=== PATIENT | male | born 1990 | race Caucasian/White ===

== ENCOUNTER 2019-03-11 15:00 | Emergency (ER) | payer MEDICAID, SELFPAY ==
[2019-03-11 15:01] VITALS: BP 114/68; PULSE 90; RESP 16; TEMP 36.2; O2SAT 98; BMI 28.1
[2019-03-11 16:06] LABS: Absolute Lymphocyte Count 2.26 X10^3/uL (0.83-4.51); Absolute Neutrophil Count 4.5 X10^3/uL (2.0-7.7); Basophil# 0.06 X10^3/uL; Basophil% 0.8 % (0-1); Eosinophil# 0.12 X10^3/uL; Eosinophils% 1.5 % (0-5); Hematocrit 45.2 % (40-54); Hemoglobin 15.4 g/dL (13.0-16.5); Lymphocyte # 2.26 X10^3/ul (4.0); Lymphocyte % 28.6 % (19-41); Mean Corp Hgb Conc 34.1 g/dL (32-36); Mean Corpuscular Hgb 30.7 pg (27.0-32.0); Mean Corpuscular Volume 90.2 fL (80-94); Mean Platelet Vol. 9.9 fl (6.2-12.0); Monocyte# 0.93 X10^3/uL; Monocyte% 11.8 % (0-10); NRBC Flagged by Analyzer 0 % (0-5); Neutrophil # 4.51 X10^3/uL (2.7-7.7); Platelet Count 283 K/mm3 (150-450); RBC Distribution Width CV 11.4 % (11.6-14.6); RBC Distribution Width SD 37.8 fl (35.1-43.9); Red Blood Count 5.01 M/mm3 (4.6-6.2); White Blood Count 7.9 K/mm3 (4.4-11.0)
[2019-03-11 16:21] LABS: ALB/GLOB Ratio 1.2 RATIO (0.9-2.4); AST(SGOT) 14 U/L (15-37); Alanine Aminotransfer ALT/SGPT 22 U/L (16-61); Albumin, Serum 4.3 g/dL (3.2-5.0); Alkaline Phosphatase 61 U/L (45-117); Anion Gap 4 (5-15); BUN 12 mg/dL (7-18); BUN/Creat Ratio 11.8 RATIO (10-20); Calcium,Total 9.1 mg/dL (8.5-10.1); Chloride 106 mmol/L (98-107); Creatinine, Serum 1.02 mg/dL (0.70-1.30); EST Glomerular Filtration Rate 92 mL/min (>60); Est Glom Filt Rate - Afr Amer 111 mL/min (>60); Estimated Creatinine Clearance 103.38 ml/min; Globulin 3.6 g/dL (2.2-4.2); Glucose 91 mg/dL (74-106); Potassium 3.9 mmol/L (3.5-5.1); Protein, Total 7.9 g/dL (6.4-8.2); Sodium Level 141 mmol/L (136-145)
[2019-03-11 16:25] LABS: International Normalized Ratio 1.2; Prothrombin Time (Protime)PT. 14.5 SECONDS (11.7-14.9)
[2019-03-11 16:26] LABS: Partial Thromboplast Time 33.8 Seconds (24.1-36.2)
--- NOTE | 2019-03-11 16:55 | ED.DCSUM_ITS ---
- ER Visit Summary Date of Service: 03/11/19 Chief Complaint: Blood in stool History of Present Illness: The patient is a 29 M that has had some rectal pain recently. He had bright red blood on a bowel movement and in the toilet bowl after a bowel movement today. This was the first time this happened. He has had rectal pain for about 2 days. No prior history of hemorrhoids or other rectal problems. No other significant medical history. He does not take blood thinners. Physical Examination: Afebrile and vital signs unremarkable. Abdomen soft and nontender. Patient has a right-sided external hemorrhoid that is nonthrombosed. There is a small abrasion. Otherwise his exam is unremarkable. Test Results: Blood work was all unremarkable. Coags normal. Hemoccult testing was positive. I believe this is from the hemorrhoid. He had no stool in the r ectal vault. His exam was chaperoned by Vicenta SAVAGE. Emergency Department Course and Treatment: Patient has an external hemorrhoid. His blood work, vitals, and exam are otherwise unremarkable. We will treat the hemorrhoid. If he has worsening bleeding or any other new symptoms, he should return right away. Will refer to surgery for follow-up. Treatment Plan: Stool softeners. Topical treatments. Disposition: Discharge Impression: 1. External hemorrhoid This note was generated with [employer] dictation software. It may contain incorrect words, spelling, and punctuation that were not noted in review of the chart prior to signing ED Disposition - Plan for ED Patient: Referrals: Care Physician,No Primary [Primary Care Provider] -
--- NOTE | 2019-03-11 16:57 | ED.DEP ---
ED Disposition - Plan for ED Patient: Instructions: Treating Hemorrhoids: Self-Care Prescriptions: Docusate Sodium [Colace] 100 mg PO DAILY #20 cap Prescription Printed Ashia Wright [Tucks] 1 ea TP Q4H #30 med..pad Prescription Printed Referrals: Hernandez Prasad MD [STAFF PHYSICIAN] -
== END 2019-03-11 17:11 | disposition home or self-care (01) ==
PROVIDERS: Emergency Provider Emergency Medicine
DX: K64.4 Residual hemorrhoidal skin tags (principal)
CPT/HCPCS: 80053; 82274; 85025; 85610; 85730; 99283; J7030

== ENCOUNTER 2020-07-28 14:54 | Emergency (ER) | payer MEDICAID, SELFPAY ==
[2020-07-28 14:56] VITALS: BP 122/84; PULSE 80; RESP 18; TEMP 35.9; O2SAT 98; BMI 32.3
--- NOTE | 2020-07-28 15:06 | NURSING ---
NO OLD EKGS
--- NOTE | 2020-07-28 15:11 | EKG12_ITS ---
Test Reason : CP Blood Pressure : / mmHG Vent. Rate : 072 BPM Atrial Rate : 072 BPM P-R Int : 126 ms QRS Dur : 084 ms QT Int : 376 ms P-R-T Axes : 010 065 034 degrees QTc Int : 411 ms Sinus rhythm with marked sinus arrhythmia Otherwise normal ECG Confirmed by SHAHEEN PULIDO, LISANDRA ([id number]), slot editor EUGENE ROE ([id number]) on 07/31/2020 11:26:29 AM Referred By: EFREN Confirmed By:LISANDRA JAMISON MD
--- NOTE | 2020-07-28 15:11 | ED.VIS.GEN ---
History of Present Illness Chief Complaint: Chest Pain Informant: Patient Narrative: 30-year-old male presenting for the evaluation of chest pressure. Tells me he has had 3 episodes in the past couple of weeks but last 10 to 20 minutes. No particular activity seems to incite it. He describes it as a heaviness midsternal. Denies any other symptoms. The last episode was last evening. He is a non-smoker. No known early familial heart disease. Patient reports that his family feels that he is more fatigued than normal. Past Medical History - Allergies and Home Meds Allergies/Adverse Reactions: Allergies No Known Allergies Allergy (Verified 07/28/20 14:58) Primary Care Physician: Care Physician,No Primary [Primary Care Provider] - Past Medical History: None Surgical History: noncontributory Lives: With Family Smoking Status: Never smoker Drugs: None Review of Systems General: Denies: Chills, Fever, Sweats Eyes: Denies: Visual changes - bilaterally, Diplopia ENT: Denies: Rhinorrhea, Sore throat Cardiovascular: Reports: Chest pain. Denies: Palpitations Respiratory: Denies: Dyspnea, Cough, Dyspnea on exertion Gastrointestinal: Denies: Abdominal pain, Nausea, Vomiting, Diarrhea, Melena, Hematochezia Genitourinary: Denies: Dysuria, Hematuria, Frequency Musculoskeletal: Denies: Back pain, Extremity Pain Skin: Denies: Rash, Wounds Neurological: Denies: Headache, Weakness, Numbness Physical Exam Vital Signs/Narrative: Vital Signs Temp Pulse Resp BP Pulse Ox 07/28/20 14:56 96.7 F L 80 18 122/84 H 98 Inital Vital Signs reviewed: Yes General: Well nourished, Well developed, No Acute Distress Head: Normocephalic, Atraumatic Eyes: Perrl, EOMI ENT: Moist mucous membranes, No rhinorrhea Neck: Supple, Nontender Cardiovascular: Regular rate, Regular rhythm, No murmurs Respiratory: No distress, CTA bilaterally, Chest nontender Abdomen: Soft, Nontender, Nondistended, Normal bowel sounds Back: Nontender, Normal Inspection Extremities: Nontender, No edema Skin: Normal color, No rash Neurological: Alert, Oriented x3, Cranial nerves II-XII grossly intact, Normal Strength, Normal Sensation Psychological: Normal affect, Normal Mood Diagnostic/Tx/Re-eval Clinical Impression(s) from Imaging Studies Chest X-Ray 07/28/20 15:13 IMPRESSION: Nonacute portable x-ray examination of the chest. Electronically Signed: Evangelist Aguilar MD (Brooks) at 15:32 EST , Service support , Laboratory Last Values WBC 6.9 K/mm3 (4.4-11.0) 07/28/20 15: RBC 4.57 M/mm3 (4.6-6.2) L 07/28/20 15:26 Hgb 13.9 g/dL (13.0-16.5) 07/28/20 15: Hct 40.8 % (40-54) 07/28/20 15: MCV 89.3 fL (80-94) 07/28/20 15: MCH 30.4 pg (27.0-32.0) 07/28/20 15: MCHC 34.1 g/dL (32-36) 07/28/20 15: RDW Std Deviation 36.6 fl (35.1-43.9) 07/28/20 15: RDW Coeff of Abhijeet 11.4 % (11.6-14.6) L 07/28/20 15: Plt Count 264 K/mm3 (150-450) 07/28/20 15: MPV 10.0 fl (6.2-12.0) 07/28/20 15: Immature Gran % (Auto) 0.300 % (0.0-0.9) 07/28/20 15: Neut % (Auto) 51.4 % (47-70) 07/28/20 15: Lymph % (Auto) 34.0 % (19-41) 07/28/20 15: [place] % (Auto) 12.1 % (0-10) H 07/28/20 15: Eos % (Auto) 1.3 % (0-5) 07/28/20 15: Baso % (Auto) 0.9 % (0-1) 07/28/20 15:26 Absolute Neuts (auto) 3.5 X10^3/uL (2.0-7.7) 07/28/20 15:26 Absolute Lymphs (auto) 2.33 X10^3/uL (0.83-4.51) 07/28/20 15:26 Nucleated RBC % 0 % (0-5) 07/28/20 15:26 Sodium 137 mmol/L (136-145) 07/28/20 15:26 Potassium 3.6 mmol/L (3.5-5.1) 07/28/20 15:26 Chloride 104 mmol/L (98-107) 07/28/20 15:26 Carbon Dioxide 27.0 mmol/L (21.0-32.0) 07/28/20 15:26 Anion Gap 6 (5-15) 07/28/20 15:26 BUN 11 mg/dL (7-18) 07/28/20 15:26 Creatinine 0.90 mg/dL (0.70-1.30) 07/28/20 15:26 Estim Creat Clear Calc 108.30 ml/min 07/28/20 15:26 Est GFR (MDRD) Af Amer 128 mL/min (>60) 07/28/20 15:26 Est GFR (MDRD) Non-Af 106 mL/min (>60) 07/28/20 15:26 BUN/Creatinine Ratio 12.3 RATIO (10-20) 07/28/20 15:26 Glucose 97 mg/dL (74-106) 07/28/20 15:26 Calcium 8.6 mg/dL (8.5-10.1) 07/28/20 15:26 Troponin I < 0.015 ng/mL (<0.045) 07/28/20 15:26 - EKG Initial EKG Interpretation: Sinus Rhythm - EKG is a sinus rhythm with sinus arrhythmia at a rate of 72 without ACS features or ectopy - Medical Decision Making Patient is PERC negative. EKG is a sinus rhythm. My interpretation of the single view chest x-ray is no acute process. Troponin is negative. Patient is asymptomatic at this time. Possible the patient is experiencing esophageal spasms or bronchospasm. I have asked that if he has another episode to take some Maalox and see if that makes a difference. I have asked that he establish primary care to follow up from todays visit ED Disposition - Plan for ED Patient: Disposition: Home or Assisted Living Diagnosis: Chest pain Instructions: ED Chest Pain, Uncertain Cause Referrals: Rosita Rouse MD [STAFF PHYSICIAN] - (call to arrange primary care follow up)
--- NOTE | 2020-07-28 15:13 | RAD_ITS ---
STUDY: X-RAY CHEST REASON FOR EXAM: Male, 30 years old. INTERMITTENT CHEST TIGHTNESS STARTING LAST NIGHT TECHNIQUE: AP COMPARISON: None. FINDINGS: The lungs are clear and expanded. There is no demonstrated pleural abnormality. Normal size heart. Normal mediastinum and bao. Normal visualized pulmonary arteries. Normal visualized aortic arch and descending thoracic aorta. Normal visualized thoracic spine. Normal visualized ribs, clavicles, and shoulders. There is no demonstrated abnormality of the visualized soft tissue structures of the upper abdomen. RAD/Chest 1 View (Portable) IMPRESSION: Nonacute portable x-ray examination of the chest. Electronically Signed: Evangelist Aguilar MD (Brooks) at 15:32 EST , Service support ,
[2020-07-28 15:44] LABS: Absolute Lymphocyte Count 2.33 X10^3/uL (0.83-4.51); Absolute Neutrophil Count 3.5 X10^3/uL (2.0-7.7); Basophil# 0.06 X10^3/uL; Basophil% 0.9 % (0-1); Eosinophil# 0.09 X10^3/uL; Eosinophils% 1.3 % (0-5); Hematocrit 40.8 % (40-54); Hemoglobin 13.9 g/dL (13.0-16.5); Lymphocyte # 2.33 X10^3/ul (4.0); Mean Corp Hgb Conc 34.1 g/dL (32-36); Mean Corpuscular Hgb 30.4 pg (27.0-32.0); Mean Corpuscular Volume 89.3 fL (80-94); Monocyte# 0.83 X10^3/uL; Monocyte% 12.1 % (0-10); NRBC Flagged by Analyzer 0 % (0-5); Neutrophil # 3.53 X10^3/uL (2.7-7.7); Neutrophil % 51.4 % (47-70); Platelet Count 264 K/mm3 (150-450); RBC Distribution Width CV 11.4 % (11.6-14.6); RBC Distribution Width SD 36.6 fl (35.1-43.9); Red Blood Count 4.57 M/mm3 (4.6-6.2); White Blood Count 6.9 K/mm3 (4.4-11.0)
[2020-07-28 16:20] LABS: Anion Gap 6 (5-15); BUN 11 mg/dL (7-18); BUN/Creat Ratio 12.3 RATIO (10-20); Calcium,Total 8.6 mg/dL (8.5-10.1); Chloride 104 mmol/L (98-107); EST Glomerular Filtration Rate 106 mL/min (>60); Est Glom Filt Rate - Afr Amer 128 mL/min (>60); Glucose 97 mg/dL (74-106); Potassium 3.6 mmol/L (3.5-5.1); Sodium Level 137 mmol/L (136-145)
[2020-07-28 16:54] VITALS: PULSE 67; RESP 21; O2SAT 98
== END 2020-07-28 16:55 | disposition home or self-care (01) ==
PROVIDERS: Emergency Provider Emergency Medicine
DX: R07.9 Chest pain, unspecified (principal)
CPT/HCPCS: 71045; 80048; 84484; 85025; 93005; 99284; A4216

== ENCOUNTER 2020-10-01 02:52 | Emergency (ER) | payer MEDICAID, SELFPAY ==
--- NOTE | 2020-10-01 02:52 | EKG12_ITS ---
Test Reason : CP Blood Pressure : / mmHG Vent. Rate : 073 BPM Atrial Rate : 073 BPM P-R Int : 130 ms QRS Dur : 084 ms QT Int : 398 ms P-R-T Axes : -09 058 027 degrees QTc Int : 438 ms Normal sinus rhythm Normal ECG Confirmed by ESME PULIDO, DOMINGUEZ ([id number]), freelance programmer/app developer EUGENE ROE ([id number]) on 10/03/2020 8:56:59 AM Referred By: JACOB Confirmed By:DMOINGUEZ VICTORIA MD
[2020-10-01 02:53] VITALS: BP 129/75; PULSE 74; RESP 16; TEMP 36.4; O2SAT 98; BMI 34.9
--- NOTE | 2020-10-01 03:14 | ED.DCSUM_ITS ---
- ER Visit Summary Date of Service: 10/01/20 Chief Complaint: Lower sternal chest pain History of Present Illness: The patient is a 30 M no sniffing past medical history. Prior hernia repair is a small child. Patient states tonight lay down to go to bed around midnight but is lying flat in bed he had lower sternal chest discomfort. He denies any nausea or vomiting. He denies any shortness of breath. Describes it as a dull ache. No radiation to his neck, jaw, arm or back. Not associated with exertion. No recent exertional symptoms. No history of DVT or PE or any family history of sudden cardiac in anyone below 40 and no history of clots. He denies any leg pain or swelling. No recent travel, surgery or immobilization. No hemoptysis. He is not particularly short of breath. Physical Examination: Young male no acute distress vital signs stable afebrile. Pulse ox 90% on room air no signs of hypoxia. HEENT exam unremarked. Neck nontender no JVD no lymphadenopathy. Lungs clear to auscultation bilaterally. Heart regular rate and rhythm rate in the 70s. No murmur. Chest wall nontender. No ecchymosis or bruising. No subcu air or crepitance. No reproducible pain. Abdomen soft nontender normal bowel sounds no peritoneal signs. Patient moving all 4 extremities. Neurovascular intact. Equal symmetrical perforator loader strength. Equal symmetrical radial pulses. Calves nontender without edema or cords. Back nontender. Neurologically is awake alert with no focal motor deficit. Test Results: EKG shows a normal sinus rhythm rate of 73 no acute signs of KS or ischemia. Unchanged from prior EKG from July 282020. Repeat exam patient is doing well at 4:05 AM. He is symptom-free after the GI cocktail and the Pepcid. He and I discussed test results and diagnosis. Emergency Department Course and Treatment: Patient has nonreproducible nonexertional noncardiac sounding chest pain. He is in normal exam. EKG is normal and unchanged. He had a prior work-up about 2 months ago which was negative. I have reviewed all those laboratory and test results. He had negative chest x-ray at that time. He will be treated with GI cocktail and Pepcid and reassess. Clinically this appears to be like a reflux. Treatment Plan: Prilosec for reflux. Outpatient follow-up. Return if worse. Disposition: Discharge Impression: Acute chest pain secondary to reflux This note was generated with [employer] dictation software. It may contain incorrect words, spelling, and punctuation that were not noted in review of the chart prior to signing ED Disposition - Plan for ED Patient: Referrals: Care Physician,No Primary [Primary Care Provider] -
[2020-10-01] MEDS: Famotidine 20 MG Tablet 40 MG PO (03:17)
[2020-10-01] MEDS: Mag Hydrox/Al Hydrox/Simeth 30 ML UDC PO (03:17)
--- NOTE | 2020-10-01 04:06 | ED.DEP ---
ED Disposition - Plan for ED Patient: Disposition: Home or Assisted Living Instructions: ED GERD (Adult) Prescriptions: Omeprazole [Prilosec] 20 mg PO DAILY #30 capsule Prescription Printed Referrals: Barney Gonsalez MD [STAFF PHYSICIAN] - 1 Week if not improving Additional Instructions: Avoid eating food within 3 hours of going to bed. Elevate the head of your bed if possible. You can either get the Prilosec I prescribed [id number] or through the pharmacy. This should help reduce the acid in your stomach and decrease the indigestion. You could take it either once daily or twice daily. Avoid alcohol at the current time it may irritate your stomach more also avoid Motrin until your stomach feeling better. Follow-up with a local physician if not improving. Return emergency department if you are feeling a lot worse.
[2020-10-01 04:22] VITALS: BP 121/82; PULSE 71; RESP 17; O2SAT 98
[2020-10-01 04:26] VITALS: BP 121/82; PULSE 101; RESP 20; O2SAT 97
== END 2020-10-01 04:27 | disposition home or self-care (01) ==
PROVIDERS: Emergency Provider Emergency Medicine
DX: K21.9 Gastro-esophageal reflux disease without esophagitis (principal)
CPT/HCPCS: 93005; 99283

== ENCOUNTER 2024-01-26 20:11 | Emergency (ER) | payer MEDICAID, SELFPAY ==
[2024-01-26 20:12] VITALS: BP 123/69; PULSE 86; RESP 16; TEMP 36.6; O2SAT 99; BMI 40.1
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
[2024-01-26] MEDS: Fluorescein 1 MG STRIP 2 STRIP OPHTHALMIC (21:04)
[2024-01-26] MEDS: Tetracaine 0.5% Ophthalmic Bottle 1 DRP EACH EYE (21:06)
[2024-01-26 22:04] VITALS: BP 118/80; PULSE 71; RESP 16; TEMP 36.3; O2SAT 99
== END 2024-01-26 22:05 | disposition home or self-care (01) ==
PROVIDERS: Emergency Provider Emergency Medicine; Visit Provider Emergency Medicine
DX: Z77.098 Contact with and (suspected) exposure to other hazardous, chiefly nonmedicinal, chemicals (principal)
CPT/HCPCS: 99284

== ENCOUNTER 2024-07-26 14:52 | Emergency (ER) | payer MEDICAID, SELFPAY ==
[2024-07-26] VITALS (7 sets, daily range): BP systolic 120–136; BP diastolic 60–74; PULSE 88–123; RESP 15–22; TEMP 37.3–38.3; O2SAT 94–99; BMI 34.4
--- NOTE | 2024-07-26 14:56 | RAD_ITS ---
PROCEDURE: CHEST 1 VIEW (PORTABLE) REASON FOR EXAM: Fever, cough TECHNIQUE: Frontal view of the chest COMPARISON: 07/28/20 FINDINGS: The heart size is normal. The mediastinal contour is unremarkable. Left lower lung zone opacity likely representing atelectasis. The bones are unremarkable. RAD/Chest 1 View (Portable) IMPRESSION: Left lower lung atelectasis. No acute infiltrate. Reading Location: [facility]
--- NOTE | 2024-07-26 16:16 | EDS_ITS ---
HPI History of Present Illness Chief Complaint: Shortness of Breath Informant: patient Onset/Context/Timing Onset: Weeks (2) Context: sudden Timing: Continuous Quality: Positive for Dyspnea on exertion Worsened by: Exertion Relieved by: Rest Associated Symptoms cough, rhinorrhea, fever, sore throat and yellow sputum; Negative for post nasal drip, ear pain, sweats, clear sputum, white sputum or green sputum Chest Pain: Positive for Aching Narrative Narrative: Patient presents with shortness of breath and cough that has been getting worse over the past 2 weeks. Patient states he went to urgent care and was given a prescription for cough medicine. Patient states he has been taking this with no relief. Patient states he is coughing up some yellow sputum occasionally. Patient admits to a fever of 102.4 at home. Patient admits to a sore throat and rhinorrhea. Patient also admits to some pain across his chest. Patient describes it as aching. [facility] Medical History (Updated 07/26/24 @ 18:[address] Shan Alvarado DO) Inguinal hernia Home Medications ?Medication ?Instructions ?Recorded ?Last Taken ?Type NK 07/26/24 Unknown History Allergy/AdvReac Type Severity Reaction Status Date / Time No Known Allergies Allergy Verified 07/26/24 14:53 Surgical History (Updated 07/26/24 @ 16:[address] Shan Alvarado DO) History of herniorrhaphy Social History Smoking Status: Never smoker ROS ROS ED Constitutional Constitutional ED: Reports fever(s); Denies chills Eyes Eyes: Denies blurry vision or change in vision ENT ENT ED: Reports rhinorrhea and sore throat Cardiovascular Cardiovascular: Reports chest pain; Denies palpitations Respiratory/Chest Respiratory/Chest: Reports cough and dyspnea Gastrointestinal Gastrointestinal: Reports nausea and vomiting Genitourinary Genitourinary ED: Denies dysuria or hematuria Musculoskeletal Musculoskeletal: Reports back pain and neck pain Integumentary Denies abscess or rash Neurologic Neurologic: Reports headache(s); Denies weakness Allergic/Immunologic Allergic/Immunologic ED: Denies mouth swelling or urticaria EXAM Physical Exam Const Vital Signs: 07/26/24 14:53 07/26/24 14:56 07/26/24 16:13 Temperature 100.9 F H 100.9 F H Temperature Source Oral Oral Pulse Rate 123 H 123 H Respiratory Rate 22 H 22 H Respiratory Effort Respiratory Depth Respiratory Pattern Blood Pressure 120/74 120/74 Blood Pressure Mean 89 89 Pulse Ox 94 94 Oxygen Delivery Method Room Air Room Air Room Air 07/26/24 16:13 07/26/24 16:13 07/26/24 16:52 Temperature Temperature Source Pulse Rate 105 H Respiratory Rate 19 H 20 H Respiratory Effort Short of Breath Respiratory Depth Normal Respiratory Pattern Tachypnea Blood Pressure 133/69 H Blood Pressure Mean 90 Pulse Ox 97 97 Oxygen Delivery Method Room Air Room Air Room Air 07/26/24 16:56 07/26/24 17:00 Temperature 100.9 F H 100.9 F H Temperature Source Oral Oral Pulse Rate 105 H 98 Respiratory Rate 20 H 17 Respiratory Effort Respiratory Depth Respiratory Pattern Blood Pressure 133/69 H 131/60 H Blood Pressure Mean 90 83 Pulse Ox 97 99 Oxygen Delivery Method Room Air Room Air Positive well nourished and well developed General Appearance ED: well developed and NAD HEENT Reports moist mucous membranes Neck supple and no JVD Resp normal respiratory effort and clear to auscultation bilaterally Cardio regular rhythm Rate: tachycardic GI non-tender and non-distended Palpation: soft Extremity normal to inspection Neuro oriented x3, CN's II-XII intact bilaterally and no sensory deficits noted Wells Coma Scale: document GCS findings Spontaneous Obeys Commands Oriented 15 Sensorium / Orientation: alert Speech: speech normal Motor Exam: strength 5/5 throughout Psych mental status grossly normal MDM MDM MDM Narrative Medical decision making narrative: Differential diagnosis includes viral illness, pneumonia, bronchitis, dehydration, and electrolyte abnormality. CBC will be obtained to assess for leukocytosis and anemia. Basic metabolic profile will be obtained to assess for electrolyte abnormality and renal functions. Chest x-ray will be obtained to assess for pneumonia and bronchitis. Lab Data Attestation: I reviewed the patient's lab results. Lab results narrative: CBC was reviewed. There is a mild leukocytosis of 14.2. The remainder is within normal limits. Basic metabolic profile was reviewed and was within normal limits. COVID-19 PCR was reviewed and was negative. Influenza PCR was reviewed and was negative for influenza A and influenza B. RSV PCR was reviewed and was negative. Rapid strep was reviewed and was negative. Labs: Laboratory Results - last 24 hr 07/26/24 16:08 WBC 14.2 H RBC 4.58 L Hgb 13.8 Hct 39.5 L MCV 86.2 MCH 30.1 MCHC 34.9 RDW Std Deviation 35.8 RDW Coeff of Abhijeet 11.2 L Plt Count 302 MPV 9.4 Immature Gran % (Auto) 0.300 Neut % (Auto) 75.9 H Lymph % (Auto) 11.8 L [place] % (Auto) 11.3 H Eos % (Auto) 0.3 Baso % (Auto) 0.4 Absolute Neuts (auto) 10.8 H Absolute Lymphs (auto) 1.67 Nucleated RBC % 0 Diff Path Review May foll Reactive Lymphocytes 1+ Anisocytosis 1+ Ovalocytes 1+ Sodium 137 Potassium 3.5 Chloride 102 Carbon Dioxide 26.0 Anion Gap 9 BUN 12 Creatinine 0.90 Estim Creat Clear Calc 134.51 Est GFR (MDRD) Af Amer 124 Est GFR (MDRD) Non-Af 103 BUN/Creatinine Ratio 13.3 Glucose 102 Calcium 8.9 Radiography Chest X-Ray - ED: 1 View, Read by ED Physician, Read by Radiologist and No Acute Disease Diagnostic Testing: Clinical Impression(s) from Imaging Studies Chest X-Ray 07/26/24 14:56 IMPRESSION: Left lower lung atelectasis. No acute infiltrate. [facility] view chest x-ray was obtained. On my independent interpretation, lung loredo a show left lower lobe atelectasis but no acute infiltrate. There is normal cardiac silhouette. Bony thorax is normal. There is no acute process noted. Radiologist also interpreted the x-ray and agrees. Treatment and Re-Evaluation :: Patient was given IV fluids and Tylenol here. Patient was advised of his findin gs. Patient was advised that this is most likely a viral upper respiratory infection. Patient was instructed to continue Tylenol and ibuprofen as needed for any aches or fevers. Patient was instructed to drink plenty of fluids. Patient was instructed to follow-up with his primary care physician in 5 to 7 days. Patient understood and was agreeable with the plan. All questions were answered. Discharge Plan Triage Chief Complaint: Shortness of Breath ED Provider: Shan Alvarado Dx/Rx/DC Orders Clinical Impression: Viral upper respiratory infection, Fever Instructions: ED Fever Control (Adult), ED URI, Viral, No Abx (Adult) Prescriptions: No Action NK Primary Care Provider: Daniel Saavedra Referrals: Daniel Saavedra MD [Primary Care Provider] - 5-7 Days Care Physician,No Primary [Non-Staff] - Print Language: Vietnamese Disposition Disposition: Home, Self Care
[2024-07-26 16:20] LABS: Absolute Lymphocyte Count 1.67 X10^3/uL (0.83-4.51); Absolute Neutrophil Count 10.8 X10^3/uL (2.0-7.7); Basophil# 0.05 X10^3/uL; Basophil% 0.4 % (0-1); Eosinophil# 0.04 X10^3/uL; Eosinophils% 0.3 % (0-5); Hematocrit 39.5 % (40-54); Hemoglobin 13.8 g/dL (13.0-16.5); Lymphocyte # 1.67 X10^3/ul (0.83-4.51); Lymphocyte % 11.8 % (19-41); Mean Corp Hgb Conc 34.9 g/dL (32-36); Mean Corpuscular Hgb 30.1 pg (27.0-32.0); Mean Corpuscular Volume 86.2 fL (80-94); Mean Platelet Vol. 9.4 fl (6.2-12.0); Monocyte% 11.3 % (0-10); NRBC Flagged by Analyzer 0 % (0-5); Neutrophil # 10.76 X10^3/uL (2.7-7.7); Neutrophil % 75.9 % (47-70); POSITIVE DIFFERENTIAL YES; Platelet Count 302 K/mm3 (150-450); RBC Distribution Width CV 11.2 % (11.6-14.6); RBC Distribution Width SD 35.8 fl (35.1-43.9); Red Blood Count 4.58 M/mm3 (4.6-6.2); White Blood Count 14.2 K/mm3 (4.4-11.0)
[2024-07-26 16:22] LABS: Differential Indicated SCAN CRITERIA MET
[2024-07-26 16:39] LABS: Anion Gap 9 (5-15); BUN 12 mg/dL (7-18); BUN/Creat Ratio 13.3 RATIO (10-20); Calcium,Total 8.9 mg/dL (8.5-10.1); Chloride 102 mmol/L (98-107); EST Glomerular Filtration Rate 103 mL/min (>60); Est Glom Filt Rate - Afr Amer 124 mL/min (>60); Estimated Creatinine Clearance 134.51 ml/min; Glucose 102 mg/dL (74-106); Potassium 3.5 mmol/L (3.5-5.1); Sodium Level 137 mmol/L (136-145)
[2024-07-26] MEDS: 0.9% Normal Saline (1000mL) 1,000 ML 1000 ML IV (16:50)
[2024-07-26] MEDS: Acetaminophen 500 MG Tablet 1000 MG PO (16:51)
[2024-07-26 17:00] LABS: Reactive Lymphocyte 1+
[2024-07-26 17:01] LABS: Anisocytosis 1+; Ovalocyte 1+
[2024-07-28 08:44] LABS: Pathologist Review Reviewed
== END 2024-07-26 18:18 | disposition home or self-care (01) ==
PROVIDERS: Emergency Provider Emergency Medicine; PCP Internal Medicine; Visit Provider Emergency Medicine
DX: J06.9 Acute upper respiratory infection, unspecified (principal)
CPT/HCPCS: 71045; 80048; 85025; 87631; 87651; 94760; 96360; 99282; A4216